=== PATIENT | male | born 1970 ===

== ENCOUNTER 2019-09-09 20:31 | Inpatient (IN) | payer OTHER ==
[~2019-09-09] VITALS: Ht 175.3 cm; Wt 84.8 kg
[2019-09-09] MEDS ORDERED: ASPIRIN 325 MG TABLET PO STA (20:36)
--- NOTE | 2019-09-09 20:40 | NUR ---
Patient sent as a transfer for a STEMI. Patient on their way per Kaleigh Us @2002. 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 All members in route @2007 per code phone.
[2019-09-09] MEDS ORDERED: VERAPAMIL 2.5 MG/ML, 2ML ONE (20:44)
[2019-09-09] MEDS ORDERED: MIDAZOLAM 1 MG/ML, 5ML ONE (20:44)
[2019-09-09] MEDS ORDERED: FENTANYL PF 100 MCG/2ML ONE (20:44)
[2019-09-09] MEDS ORDERED: TICAGRELOR 90 MG TABLET ONE (20:44)
[2019-09-09] MEDS ORDERED: BIVALIRUDIN 250 MG ONE (20:44)
[2019-09-09] MEDS ORDERED: HEPARIN 1,000 UNITS/ML, 10ML ONE (20:45)
[2019-09-09] MEDS ORDERED: LIDOCAINE 2%, 20ML ONE (20:45)
[2019-09-09] MEDS ORDERED: MORPHINE SULFATE 4 MG/ML, 1ML ONE (20:52)
[2019-09-09] MEDS ORDERED: ONDANSETRON 2MG/ML, 2ML IVPush ONE (21:00)
[2019-09-09] MEDS ORDERED: MORPHINE SULFATE 4 MG/ML, 1ML IVPush PRN (21:00)
[2019-09-09] MEDS ORDERED: PLEASE ENTER ALLERGIES MC SCH (21:00)
[2019-09-09 21:05] LABS: BASOPHILS # (AUTO) 0.04 x10^3/uL (0-0.1); BASOPHILS % (AUTO) 0 % (0-1); EOSINOPHILS # (AUTO) 0.15 x10^3/uL (0-0.4); EOSINOPHILS % (AUTO) 2 % (1-7); LYMPHOCYTES % (AUTO) 42 % (22-44); MD NO; MEAN CORPUSCULAR HEMOGLOBIN 31.2 pg (27.5-34.5); MEAN CORPUSCULAR HGB CONC 33.9 g/dL (33.2-36.2); MEAN PLATELET VOLUME 8.5 fL (7.4-10.4); MONOCYTES # (AUTO) 1.18 x10^3/uL (0.2-0.8); MONOCYTES % (AUTO) 12 % (2-9); NEUTROPHILS # (AUTO) 4.44 x10^3/uL (1.8-6.8); NEUTROPHILS % (AUTO) 44 % (42-75); PLATELET COUNT 299 x10^3/uL (130-400); RED BLOOD COUNT 5.01 x10^6/uL (4.38-5.82); RED CELL DISTRIBUTION WIDTH 13.3 % (9.4-14.8)
--- NOTE | 2019-09-09 21:06 | NUR ---
LATE ENTRY: PT ARRIVES FROM [facility] [place], PT ON ARRIVAL EKG INDICATES SUCH. PT HAD TWO BILATERAL PIVS PLACED IN BILATERAL AC VEINS, PT PLACED ON PADS AND PT CONNECTED TO MONITORS. RIGHT 18G IV PLACED TO TKO. PT GIVEN 4MG MORPHINE. PT TOLERATING DISCOMFORT MUCH BETTER. PT TO BE TRANSFERED TO MAINTENANCE WORKER NOW. REPORT TO JASMINE MAINTENANCE WORKER RN. PT IS A/O X4 AND [employer] OF 15. PT HAS GROSS NEURO INTACT. PTS RESPIRATIONS AT THIS TIME ARE NOT LABORED AND MAINTAINING AIRWAY WITHOUT ASSISTANCE.
[2019-09-09 21:22] LABS: INTERNATIONAL NORMALIZED RATIO 1.04 (0.93-1.1)
[2019-09-09 21:24] LABS: TROPONIN I 0.075 ng/mL (0.000-0.045)
[2019-09-09 22:41] VITALS: BP 115/79
[2019-09-09] MEDS ORDERED: NS + 20MEQ KCL 1,000 ML IV SCH ×2 (23:00→23:33)
[2019-09-09] MEDS ORDERED: CALCIUM CHLORIDE 13.6 MEQ in SODIUM CHLORIDE 0.9% 100 ML IV ONE (23:00)
[2019-09-09] MEDS ORDERED: POTASSIUM CHLORIDE 20 MEQ TAB.ER.PRT PO ONE (23:00)
[2019-09-10] MEDS ORDERED: POLYETHYLENE GLYCOL 17 GM PACKET PO PRN
[2019-09-10] MEDS ORDERED: ONDANSETRON ODT 4 MG PO PRN
[2019-09-10] MEDS ORDERED: morphine SULFATE 10 MG/ML, 1ML IVPush PRN
[2019-09-10] MEDS ORDERED: ONDANSETRON 2MG/ML, 2ML IVPush PRN
[2019-09-10] MEDS ORDERED: BISACODYL 10 MG SUPP PR PRN
[2019-09-10] MEDS ORDERED: ACETAMINOPHEN 325 MG TABLET PO PRN
[2019-09-10] MEDS ORDERED: ZOLPIDEM 5MG TABLET PO PRN
[2019-09-10] MEDS ORDERED: OXYcodone IR 5MG TABLET PO PRN
[2019-09-10] MEDS ORDERED: hydrALAzine 20 MG/ML, 1ML IVPush PRN
[2019-09-10] MEDS ORDERED: ATOR-2 PO (00:02)
[2019-09-10] MEDS ORDERED: ZOLP10TA PO (00:02)
[2019-09-10 00:58] LABS: FREE T4 (FREE THYROXINE) 1.12 ng/dL (0.76-1.46)
[2019-09-10 04:23] LABS: BASOPHILS % (AUTO) 0 % (0-1); EOSINOPHILS % (AUTO) 0 % (1-7); LYMPHOCYTES # (AUTO) 1.58 x10^3/uL (1-3.4); LYMPHOCYTES % (AUTO) 12 % (22-44); MD NO; MEAN CORPUSCULAR HEMOGLOBIN 31.3 pg (27.5-34.5); MEAN CORPUSCULAR VOLUME 91.9 fL (81-97); MEAN PLATELET VOLUME 8.1 fL (7.4-10.4); MONOCYTES % (AUTO) 8 % (2-9); NEUTROPHILS # (AUTO) 10.68 x10^3/uL (1.8-6.8); NEUTROPHILS % (AUTO) 80 % (42-75); PLATELET COUNT 268 x10^3/uL (130-400); RED BLOOD COUNT 4.77 x10^6/uL (4.38-5.82); RED CELL DISTRIBUTION WIDTH 13.3 % (9.4-14.8)
[2019-09-10 04:35] LABS: ALBUMIN 3.3 g/dL (3.4-5.0); ANION GAP 4 mmol/L (5-15); CALCIUM 8.2 mg/dL (8.5-10.1); CHLORIDE 107 mmol/L (98-107)
[2019-09-10 04:51] LABS: ALANINE AMINOTRANSFERASE 56 U/L (12-78); ALKALINE PHOSPHATASE 70 U/L (45-117); BILIRUBIN,TOTAL 0.4 mg/dL (0.2-1.0); CHOL/HDL RATIO 4.4; CHOLESTEROL, TOTAL 160 mg/dL (140-239); CREATININE 0.94 mg/dL (0.7-1.3); HDL CHOL % 23 % (26-37); HDL CHOLESTEROL (DIRECT) 36 mg/dL (40-60); LDL CHOLESTEROL,CALCULATED 94 mg/dL (54-169); LDL/HDL RATIO 2.6 (0.5-3.0); TOTAL PROTEIN 6.7 g/dL (6.4-8.2); TRIGLYCERIDES 150 mg/dL (50-200); VLDL CHOLESTEROL 30 mg/dL (0-25)
[2019-09-10] MEDS: CARVEDILOL 3.125 MG TABLET PO SCH ×2 (05:32→18:40)
[2019-09-10] MEDS: ASPIRIN 81 MG TABLET EC PO SCH (05:32)
[2019-09-10] MEDS: LISINOPRIL 5 MG TABLET PO SCH (08:53)
[2019-09-10] MEDS: ENOXAPARIN 40 MG/0.4 ML SQ SCH (08:53)
[2019-09-10] MEDS: FAMOTIDINE 20 MG TABLET PO SCH ×2 (08:53→20:37)
[2019-09-10] MEDS: TICAGRELOR 90 MG TABLET PO SCH ×2 (08:53→20:36)
[2019-09-10] MEDS ORDERED: CALCIUM CARBONATE 500 MG TAB.CHEW PO PRN (12:00)
[2019-09-10] MEDS ORDERED: MAGNESIUM SULFATE/D5W 100 ML IV ONE (17:30)
[2019-09-10] MEDS: ATORVASTATIN 80 MG TABLET PO SCH (20:37)
[2019-09-10] MEDS: ZOLPIDEM 10MG TABLET PO PRN (20:37)
[2019-09-11 03:23] LABS: BASOPHILS # (AUTO) 0.11 x10^3/uL (0-0.1); BASOPHILS % (AUTO) 1 % (0-1); EOSINOPHILS # (AUTO) 0.11 x10^3/uL (0-0.4); EOSINOPHILS % (AUTO) 1 % (1-7); LYMPHOCYTES # (AUTO) 1.78 x10^3/uL (1-3.4); LYMPHOCYTES % (AUTO) 17 % (22-44); MD NO; MEAN CORPUSCULAR HEMOGLOBIN 31.3 pg (27.5-34.5); MEAN CORPUSCULAR VOLUME 91.9 fL (81-97); MEAN PLATELET VOLUME 8.1 fL (7.4-10.4); MONOCYTES # (AUTO) 1.05 x10^3/uL (0.2-0.8); MONOCYTES % (AUTO) 10 % (2-9); NEUTROPHILS # (AUTO) 7.39 x10^3/uL (1.8-6.8); NEUTROPHILS % (AUTO) 71 % (42-75); PLATELET COUNT 236 x10^3/uL (130-400); RED CELL DISTRIBUTION WIDTH 13.2 % (9.4-14.8)
[2019-09-11 03:35] LABS: ALANINE AMINOTRANSFERASE 56 U/L (12-78); ANION GAP 7 mmol/L (5-15); CHLORIDE 108 mmol/L (98-107); CREATININE 0.98 mg/dL (0.7-1.3)
[2019-09-11 03:37] LABS: ALKALINE PHOSPHATASE 60 U/L (45-117); BILIRUBIN,TOTAL 0.7 mg/dL (0.2-1.0); TOTAL PROTEIN 6.4 g/dL (6.4-8.2)
[2019-09-11] MEDS: ASPIRIN 81 MG TABLET EC PO SCH (06:30)
[2019-09-11] MEDS: TICAGRELOR 90 MG TABLET PO SCH ×2 (08:28→22:06)
[2019-09-11] MEDS: CARVEDILOL 3.125 MG TABLET PO SCH ×2 (08:29→18:13)
[2019-09-11] MEDS: LISINOPRIL 5 MG TABLET PO SCH (08:29)
[2019-09-11] MEDS: FAMOTIDINE 20 MG TABLET PO SCH ×2 (08:29→22:06)
[2019-09-11] MEDS: ENOXAPARIN 40 MG/0.4 ML SQ SCH (08:32)
[2019-09-11 15:36] VITALS: BP 108/73
[2019-09-11 21:29] VITALS: BP 98/63
[2019-09-11] MEDS: ATORVASTATIN 80 MG TABLET PO SCH (22:06)
[2019-09-11] MEDS: ZOLPIDEM 10MG TABLET PO PRN (22:06)
[2019-09-12 02:52] VITALS: BP 101/68
[2019-09-12 06:20] VITALS: BP 97/62
[2019-09-12] MEDS: CARVEDILOL 3.125 MG TABLET PO SCH (06:23)
[2019-09-12] MEDS: ASPIRIN 81 MG TABLET EC PO SCH (06:23)
[2019-09-12] MEDS: ENOXAPARIN 40 MG/0.4 ML SQ SCH (08:00)
[2019-09-12] MEDS ORDERED: LISI5TAB7 PO (08:04)
[2019-09-12] MEDS ORDERED: ASPI81TA45 PO (08:04)
[2019-09-12] MEDS ORDERED: TICA90TA PO (08:04)
[2019-09-12] MEDS ORDERED: CARV3.1212 PO (08:04)
[2019-09-12] MEDS: FAMOTIDINE 20 MG TABLET PO SCH (08:28)
[2019-09-12] MEDS: TICAGRELOR 90 MG TABLET PO SCH (08:28)
[2019-09-12] MEDS: LISINOPRIL 5 MG TABLET PO SCH (08:29)
[2019-09-12 08:50] VITALS: BP 104/65
== END 2019-09-12 10:54 | disposition home or self-care (01) | DRG 247 ==
LOC: ED 21:10 → EDIP 21:34 → CCU 22:28 → 5SO 09-11 14:41
PROVIDERS: ADMIT Internal Medicine Interventional Cardiology; ATTEND Hospitalist
PROC: 4A023N7 Measurement of Cardiac Sampling and Pressure, Left Heart, Percutaneous Approach (ICD-10-PCS; principal; 2019-09-09)
PROC: 027034Z Dilation of Coronary Artery, One Artery with Drug-eluting Intraluminal Device, Percutaneous Approach (ICD-10-PCS; 2019-09-09)
PROC: 02C03ZZ Extirpation of Matter from Coronary Artery, One Artery, Percutaneous Approach (ICD-10-PCS; 2019-09-09)
PROC: B211YZZ Fluoroscopy of Multiple Coronary Arteries using Other Contrast (ICD-10-PCS; 2019-09-09)
PROC: B215YZZ Fluoroscopy of Left Heart using Other Contrast (ICD-10-PCS; 2019-09-09)
DX: I21.09 ST elevation (STEMI) myocardial infarction involving other coronary artery of anterior wall (principal); I47.2 Ventricular tachycardia; E78.00 Pure hypercholesterolemia, unspecified; E78.5 Hyperlipidemia, unspecified; E83.51 Hypocalcemia; E87.6 Hypokalemia; I25.10 Atherosclerotic heart disease of native coronary artery without angina pectoris; Z87.891 Personal history of nicotine dependence
CPT/HCPCS: 36415; 92973; 93458; 96374; 99285; C9600; J3490; 71045; 80047; 80053; 80061; 83036; 83735; 84100; 84439; 84443; 84484; 85025; 85610; 85730; 87081; 93005; 93306; 93356; 99156; 99157; C1769; C1894; G0378; J0583; J1644; J1650; J2250; J2405; J3010; J3480; C1725; C1757; C1874; C1887; J2270; Q9967